=== PATIENT | male | born 1940 | race Caucasian/White ===

== ENCOUNTER 2017-03-14 09:35 | Day surgery (SDC) | payer MEDICARE ==
[~2017-03-14 09:35] MED LIST: AZIT250 PO; LEVSOD200 PO; Metoprolol Tart25 MG PO; OMEP40CA12 PO
== END 2017-03-14 23:05 | disposition home or self-care (01) ==
LOC: WOUND 09:35
PROC: 2W1RX6Z Compression of Left Lower Leg using Pressure Dressing (ICD-10-PCS; principal; 2017-03-14)
DX: Z48.00 Encounter for change or removal of nonsurgical wound dressing (principal); I87.2 Venous insufficiency (chronic) (peripheral); I10 Essential (primary) hypertension
CPT/HCPCS: G0463

== ENCOUNTER 2017-03-17 00:44 | Day surgery (SDC) | payer MEDICARE | END 2017-03-17 23:31 | disposition home or self-care (01) | LOC: WOUND 00:44 | PROC: 0HBLXZZ Excision of Left Lower Leg Skin, External Approach (ICD-10-PCS; principal; 2017-03-17) | DX: Z48.00 Encounter for change or removal of nonsurgical wound dressing (principal); I87.2 Venous insufficiency (chronic) (peripheral); I10 Essential (primary) hypertension; K21.9 Gastro-esophageal reflux disease without esophagitis; L97.221 Non-pressure chronic ulcer of left calf limited to breakdown of skin | CPT/HCPCS: G0463 ==

== ENCOUNTER 2017-03-24 10:30 | Day surgery (SDC) | payer MEDICARE | END 2017-03-24 10:46 | disposition home or self-care (01) | LOC: WOUND 10:30 | PROC: 2W1RX6Z Compression of Left Lower Leg using Pressure Dressing (ICD-10-PCS; principal; 2017-03-24) | DX: Z48.00 Encounter for change or removal of nonsurgical wound dressing (principal); I87.2 Venous insufficiency (chronic) (peripheral); I10 Essential (primary) hypertension; L97.229 Non-pressure chronic ulcer of left calf with unspecified severity ==

== ENCOUNTER 2017-03-31 00:36 | Day surgery (SDC) | payer MEDICARE | END 2017-03-31 22:00 | disposition home or self-care (01) | LOC: WOUND 00:36 | DX: Z48.00 Encounter for change or removal of nonsurgical wound dressing (principal); I87.2 Venous insufficiency (chronic) (peripheral); L97.229 Non-pressure chronic ulcer of left calf with unspecified severity; I10 Essential (primary) hypertension | CPT/HCPCS: G0463 ==

== ENCOUNTER 2018-06-28 16:33 | Inpatient (IN) | payer MEDICARE ==
[~2018-06-28] VITALS: Ht 172.7 cm; Wt 91.1 kg
[~2018-06-28 16:33] MED LIST changes: -LEVSOD200 PO; -Metoprolol Tart25 MG PO; +TIROSINT200 MCG PO
[2018-06-28 17:23] LABS: BASOPHILS ABSOLUTE AUTO 0.04 K/mm3 (0.00-0.23); BASOPHILS PERCENT AUTO 1 % (0-2); EOSINOPHILS ABSOLUTE AUTO 0.14 K/mm3 (0.00-0.68); EOSINOPHILS PERCENT AUTO 2 % (0-6); Hematocrit 45.3 % (37.0-53.0); Hemoglobin 15.1 g/dL (13.5-17.5); IMMATURE GRAN ABSOLUTE AUTO 0.02 K/mm3 (0.00-0.10); IMMATURE GRAN PERCENT AUTO 0 % (0-1); LYMPHOCYTES ABSOLUTE AUTO 1.59 K/mm3 (0.84-5.20); LYMPHOCYTES PERCENT AUTO 22 % (21-46); MONOCYTES ABSOLUTE AUTO 0.52 K/mm3 (0.16-1.47); MONOCYTES PERCENT AUTO 7 % (4-13); Mean Corpuscular HGB 29.1 pg (26.0-34.0); Mean Corpuscular HGB Conc 33.3 g/dL (31.5-36.5); Mean Corpuscular Volume 87 fL (80-100); NEUTROPHILS PERCENT AUTO 69 % (41-73); RDW Coefficient Variation 12.5 % (11.7-14.2); RDW Standard Deviation 39.8 fL (35.1-46.3); Red Blood Cell Count 5.19 M/mm3 (4.30-5.90); White Blood Cell Count 7.41 K/mm3 (4.00-11.30)
[2018-06-28] MEDS ORDERED: FURO20 PO (17:31)
[2018-06-28] MEDS ORDERED: METO50ER PO (17:31)
[2018-06-28] MEDS ORDERED: POTCHL10ER PO (17:32)
[2018-06-28] MEDS ORDERED: ESOM20 PO (17:40)
[2018-06-28] MEDS ORDERED: LIOT5 PO (17:42)
[2018-06-28 17:46] LABS: Alanine Aminotransfer (ALT/SGP 48 U/L (12-78); Albumin, Blood 3.3 g/dL (3.4-5.0); Albumin/Globulin Ratio 0.8 (0.8-1.8); Alk Phos 98 U/L (50-136); Anion Gap 8 mmol/L (6-16); Aspartate Aminotrans (AST/SGOT 26 U/L (12-37); Bilirubin, Total 0.4 mg/dL (0.1-1.0); Blood Urea Nitrogen 11 mg/dL (8-24); Bun/Creatinine Ratio 16.2 (12.0-20.0); CO2, Blood 26 mmol/L (21-32); CPK Creatine Kinase 124 U/L (39-308); Calcium, Blood 8.5 mg/dL (8.5-10.1); Chloride, Blood 105 mmol/L (98-108); Creatine Kinase MB Index 3.2 (0.0-4.0); Creatinine, Blood 0.68 mg/dL (0.60-1.20); Globulin, Blood 4.1 g/dL (2.2-4.0); Glomerular Filtration Rate >60 (60-); Glucose, Blood 152 mg/dL (70-99); Potassium, Blood 3.6 mmol/L (3.5-5.5); Sodium, Blood 139 mmol/L (136-145); Total Protein, Blood 7.4 g/dL (6.4-8.2)
[2018-06-28 19:25] LABS: International Normalized Ratio 0.97; Prothrombin Time Results 10.3 Sec (9.7-11.5)
--- NOTE | 2018-06-28 22:06 | NUR ---
ASSUMED PT CARE AT 2116 PT IS ALERT AND ORIENTED. PLEASANT AND COOPERATIVE WITH CARE. ABLE TO MAKE NEEDS KNOWN. UPON ARRIVAL TO UNIT PT DENIED ANY CHEST PAIN, WELL GENERAL DISCOMFORT. MONITOR SHOWED NSR WITH ST DEPRESSION; HR 80'S AND SBP 180. ADMINISTERED PT'S SCHEDULED LOPRESSOR AND PEPCID. LUNG SOUNDS ARE CLEAR T/O WITH NORMAL RESPIRATORY EFFORT. ABDOMEN IS MODERATELY DISTENDED, NORMAL FOR PT, WITH ACTIVE BTX4. PT IS CONTINENT OF BOTH BOWEL AND BLADDER; URINAL AT BEDSIDE. STANDBY ASSIST FOR TRANSFERS; PT ENCOURAGED TO CALL FOR ASSIST PRIOR TO TRANSFERRING FOR SAFETY AND PREVENTION OF FALLS; PT ACKNOWLEDGED. SKIN IS WARM AND DRY TO THE TOUCH; DENIES ANY NUMBNESS/TINGLING TO HANDS/FEET, BUT DOES STATE HE GENERALLY HAS NUMBNESS TO HIS ANKLES IN WHICH HE HAS TO DANGLE HIS FEET FOR A WHILE AND THEN IT GOES AWAY. POSITIONED THE BED WITH HIS FEET DOWN TO HELP RELIEVE DISCOMFORT; PT STATED IT HELPED. NO EDEMA NOTED. PT DENIES ANY HX OF HEART FAILURE. CALL LIGHT WITHIN REACH. INFORMED PT ON ROUNDING TIMES; PT STATED HE WOULD CALL IF HE NEEDED ANYTHING. STATED HE IS ABLE TO INDEPENDENTLY REPOSITION IN BED AND PREFERS NOT TO BE DISTURBED FOR ASSIST WITH TURNING.
[2018-06-29 03:53] LABS: BASOPHILS ABSOLUTE AUTO 0.04 K/mm3 (0.00-0.23); BASOPHILS PERCENT AUTO 1 % (0-2); EOSINOPHILS ABSOLUTE AUTO 0.19 K/mm3 (0.00-0.68); EOSINOPHILS PERCENT AUTO 2 % (0-6); Hematocrit 45.9 % (37.0-53.0); IMMATURE GRAN ABSOLUTE AUTO 0.02 K/mm3 (0.00-0.10); IMMATURE GRAN PERCENT AUTO 0 % (0-1); LYMPHOCYTES PERCENT AUTO 24 % (21-46); MONOCYTES ABSOLUTE AUTO 0.78 K/mm3 (0.16-1.47); MONOCYTES PERCENT AUTO 9 % (4-13); Mean Corpuscular HGB 28.7 pg (26.0-34.0); Mean Corpuscular HGB Conc 32.7 g/dL (31.5-36.5); Mean Corpuscular Volume 88 fL (80-100); NEUTROPHILS ABSOLUTE AUTO 5.36 K/mm3 (1.96-9.15); NEUTROPHILS PERCENT AUTO 64 % (41-73); Platelet Count 249 K/mm3 (150-400); RDW Coefficient Variation 12.7 % (11.7-14.2); RDW Standard Deviation 40.6 fL (35.1-46.3); Red Blood Cell Count 5.23 M/mm3 (4.30-5.90); White Blood Cell Count 8.39 K/mm3 (4.00-11.30)
[2018-06-29 04:19] LABS: Anion Gap 7 mmol/L (6-16); Blood Urea Nitrogen 12 mg/dL (8-24); Bun/Creatinine Ratio 16.7 (12.0-20.0); CO2, Blood 28 mmol/L (21-32); Calcium, Blood 8.5 mg/dL (8.5-10.1); Chloride, Blood 108 mmol/L (98-108); Creatinine, Blood 0.72 mg/dL (0.60-1.20); Glomerular Filtration Rate >60 (60-); Glucose, Blood 107 mg/dL (70-99); Potassium, Blood 3.7 mmol/L (3.5-5.5); Sodium, Blood 143 mmol/L (136-145)
[2018-06-29 04:31] LABS: Thyroid Stimulating Hormone 0.035 uIU/mL (0.360-4.800)
--- NOTE | 2018-06-29 06:23 | NUR ---
END OF SHIFT SUMMARY PT REMAINS ALERT AND ORIENTED; ABLE TO MAKE NEEDS KNOWN. DENIES FURTHER CHEST PAIN. TROPONIN LEVELS CALLED D/T CRITICALLY HIGH LEVELS WITH ORDERS FOR CARDIOLOGY CONSULT. CALL LIGHT IS WITHIN REACH; PT ABLE TO MAKE HIS NEEDS KNOWN. NO SIGNIFICANT CHANGES.
--- NOTE | 2018-06-29 10:02 | NUR ---
The pt stated this morning that he did not feel like eating breakfast due to his esophagus feeling "fragile". Denied any pain or dyspnea, but stated that he felt like that if he ate, he would feel poorly. Dr. Brenner was here to see the pt. Pt was taking water p.o. without difficulty. Instructed to notify RN if he had any difficulty breathing of has any chest discomfort. He verbalized understanding, and stated he would call for any symptoms.
--- NOTE | 2018-06-29 11:16 | NUR ---
Dr Yen is here to see the pt.
--- NOTE | 2018-06-29 15:30 | NUR ---
Telephone report was given to KRISTAL Juan working on PCU today. The pt will NOT being having an angiogram today due to staffing in the heart center, per Madina Phillip RN. INstead, the pt is to be NPO after MN tonight for angiogram in the morning.
--- NOTE | 2018-06-29 15:43 | NUR ---
TRANSFER NOTE- PT TRANSFERED FROM ICU, RECIEVED REPORT FROM EVENTS MANAGER MELITA. PLAN IS FOR PT TO GO TO THE [facility] TOMORROW MORNING. PT ALERT AND ORIENTED AND INDEPENDENT, ON TELE RUNNING NSR AT 70 PER BIOLOGICAL TECHNICAL OFFICER ISHMAEL. NO S&S OF DISTRESS NOTED AT THE TIME OF TRANSFER. PT SITTING UP IN THE CHAIR WITH THE CALL LIGHT IN REACH.
--- NOTE | 2018-06-29 18:37 | NUR ---
SHIFT SUMMARY- PT TRANSFERED FROM ICU. PLAN FOR [facility]ESSIONAL IN THE MORNING. PT CURRENTLY SITTING IN THE CHAIR CALL LIGHT IN REACH, NO S&S OF DISTRESS, ON ROOM AIR NSR ON TELE. WILL PASS ON IN REPORT TO GAMBLING DEALER.
--- NOTE | 2018-06-29 19:40 | NUR ---
PM NOTE. ASSUMED CARE OF PT APROX 1900, PT IS A&O AND IND IN THE ROOM. PT WAS ADMITTED DUE TO UNSTABLE ANGINA, PT STATES HE HAS HAD THIS BEFORE BUT THAT HE COULD "NOT CONTROL IT LIKE I NORMALLY CAN AT HOME." PT IS SCHEUDLED FOR AN ANGIO IN THE AM. PT IS TO BE NPO AFTER MIDNIGHT PER PROTOCOL/ORDERS. PT IS CURRENTLY SITTING UP IN A CHAIR IN THE ROOM IN NO DISTRESS, PT DENIES ANY CHEST PAIN/PRESSURE AT THIS TIME. TELE INTACT, NSR IN THE 70'S PER YARN SIZER, PT'S BP 155/69. PT HAS 1+ EDEMA TO HIS RIGHT LEG AND 2+ TO HIS LEFT, PT STATES "THIS IS MORE THAN NORMAL." L/S CLEAR T/O AND DIM IN THE BASES, PT IS ON RA AT 97%, RR 16 EVEN AND UNLABORED. BT PRESENT AND NORMOACTIVE. ABD IS SOFT AND NONTENDER TO PALP. CALL LIGHT IN REACH, WILL CONTINUE TO MONITOR.
[2018-06-30 05:02] LABS: Hematocrit 47.2 % (37.0-53.0); Hemoglobin 15.2 g/dL (13.5-17.5); Mean Corpuscular HGB 28.5 pg (26.0-34.0); Mean Corpuscular HGB Conc 32.2 g/dL (31.5-36.5); Mean Corpuscular Volume 89 fL (80-100); Platelet Count 266 K/mm3 (150-400); RDW Coefficient Variation 12.6 % (11.7-14.2); RDW Standard Deviation 41.2 fL (35.1-46.3); Red Blood Cell Count 5.33 M/mm3 (4.30-5.90); White Blood Cell Count 7.37 K/mm3 (4.00-11.30)
[2018-06-30 05:25] LABS: Anion Gap 7 mmol/L (6-16); Blood Urea Nitrogen 19 mg/dL (8-24); CO2, Blood 27 mmol/L (21-32); Calcium, Blood 8.8 mg/dL (8.5-10.1); Chloride, Blood 108 mmol/L (98-108); Creatinine, Blood 0.73 mg/dL (0.60-1.20); Glomerular Filtration Rate >60 (60-); Glucose, Blood 102 mg/dL (70-99); Potassium, Blood 3.7 mmol/L (3.5-5.5); Sodium, Blood 142 mmol/L (136-145)
--- NOTE | 2018-06-30 06:05 | NUR ---
SHIFT SUMMARY. NO ACUTE CHANGES NOTED THIS SHIFT. PT DENIES ANY CHEST PAIN/PRESSURE, N/V OR SOB. PT'S VS HAVE BEEN STABLE. PT HAS BEEN IND IN THE ROOM. NO CARDIAC EVENTS NOTED PER BURLAP MAN. PT HAS BEEN NPO SINCE MIDNIGHT FOR ANGIO THIS AM. CALL LIGHT IN REACH, BED IS LOCKED AND LOW WILL CONTINUE TO MONITOR UNTIL REPORT IS GIVEN TO ONCOMING RN.
--- NOTE | 2018-06-30 07:00 | NUR ---
BEDSIDE REPORT COMPLETED WITH NIGHT RN PRATEEK. PT TO GO TO LABOR SERVICE REPRESENTATIVE FIRST THING THIS MORNING, NO S&S OF DISTRESS NOTED AT THIS TIME, DENIES CHEST PAIN AND SOB. WILL CTM.
[2018-06-30 09:25] LABS: PCO2 Arterial 45.6 mmHg (35-45); PO2 Arterial 110 mmHg (80-100); pH Blood Arterial 7.36 (7.35-7.45)
--- NOTE | 2018-06-30 14:18 | NUR ---
PT RETURNED FROM [facility], PLAN IS TOP COBRA TRANSFER TO [facility], PT AWAITING BED. POST OP VITALS BEING COMPLETED ORDERED BY DR GRAF. PT HAS A TR BAND IN PLACE AFTER 2 HOURS POST OP BEGAN LETTING 2ML OF AIR OUT OF THE TR BAND Q 30MINUTES. THE THIRD TIME FOR A 2ML RELEASE WAS AT 1400, NOTED BLEEDING AT THE SITE REPLACED THE 2ML OF AIR AND BLEEDING STOPPED WILL REATTEMPT IN 45 MINUTES TO RELEASE MORE PRESSURE.
--- NOTE | 2018-06-30 17:17 | NUR ---
SHIFT SUMMARY- PT WENT TO [facility]NAGER [facility] THIS MORNING, TR BAND HAS BEEN RELEASED TO ZERO PRESSURE AND SITE WILL BE CLEANED AND HAVE A TEGADERM PLACED ON IT IN 15 MINUTES. PT IS AWAITING A BED AT [facility] FOR [facility]PASS SURGERY. PT ALERT AND ORIENTED NO C/O CHEST PAIN OR SOB ON EXERTION. PT TAKING PO FLIUDS WELL. IVF STOPPED PER ORDER PARAMETERS, VITALS STABLE AT THIS TIME. WILL CTM AND PASS ON TO NIGHT RN IN REPORT.
--- NOTE | 2018-06-30 20:00 | NUR ---
RECEIVED HAND OFF FROM Bladimir REYES RN USING SBAR DURING BEDSIDE REPORT. SITTING UP IN CHAIR AT BEDSIDE WHILE WATCHING TV. AAO X3, KAY, FOLLOWS ALL COMMANDS. ORIENTED TO ROOM, CALL SYSTEM, AND POC, VOICES UNDERTSTANDING. RIGHT RADIAL TR BAND SITE LOOKS APPROPRIATE WITH NO BLEEDING, OR OOZING NOTED. TEGADERM DRESSING IS C/D/I AND WRIST IMMOBILIZER IN PLACE. GOOD DISTAL PULESE AND CAP REFILL OF < 3 SEC NOTED. DENIES PAIN OR DISCOMFORT. SHIFT ASSESSMENT IN PROGRESS. DENIES FURTHER NEEDS AT THIS TIME. SAFETY MEASURES IN PLACE. WILL CONTINUE TO MONITOR.
--- NOTE | 2018-07-01 05:23 | NUR ---
LYING IN HIGH FOWLERS WITH EYES CLOSED. HAS HAD A GOOD NIGHT, RESTED WELL. NO C/O PAIN, DISCOMFORT, OR FURTHER NEEDS. WAITING ON ROOM TO BE AVAILABLE AT [facility] FOR CABG. SAFETY MEASURES IN PLACE. WILL GIVE HAND OFF TO ONCOMING SHIFT USING SBAR DURING BEDSIDE REPORT.
--- NOTE | 2018-07-01 05:27 | NUR ---
SHIFT SUMMARY LYING IN HIGH FOWLERS WITH EYES CLOSED. HAS HAD A GOOD NIGHT, RESTED WELL. NO C/O PAIN, DISCOMFORT, OR FURTHER NEEDS. WAITING ON ROOM TO BE AVAILABLE AT [place] FOR CABG. SAFETY MEASURES IN PLACE. WILL GIVE HAND OFF TO ONCOMING SHIFT USING SBAR DURING BEDSIDE REPORT.
--- NOTE | 2018-07-01 07:00 | NUR ---
ASSUMED CARE OF PT- BEDSIDE REPORT COMPLETED WITH NIGHT RN LINDA. PT HAS HAD AN UNEVENTFUL NIGHT PER REPORT, STILL AWAITING A BED AT THIS TIME FOR COBRA TRANSFER.
--- NOTE | 2018-07-01 08:06 | NUR ---
RECIEVED NOTICE OF BED AVAILABILITY, PT INFORMED, COBRA TRANSFER PAPERS SIGNED WILL CALL FOR REPORT SHORTLY.
--- NOTE | 2018-07-01 08:19 | NUR ---
CALLED [facility] AND GAVE REPORT TO CC KRISTAL NAIR, NO FURTHER QUESTIONS AT THE TIME OF REPORT, WILL CALL BACK WHEN PT LEAVES THE HOSPITAL.
== END 2018-07-01 10:36 | disposition short-term general hospital (02) | DRG 282 ==
LOC: ER 16:33 → ICUW 16:34 → PCU 21:44 → ICUW 06-29 12:06 → PCU 06-29 15:39
PROVIDERS: Emergency Medicine; Internal Medicine Cardiovascular Disease; ADMIT Internal Medicine
PROC: B2111ZZ Fluoroscopy of Multiple Coronary Arteries using Low Osmolar Contrast (ICD-10-PCS; principal; 2018-06-30)
PROC: 4A023N7 Measurement of Cardiac Sampling and Pressure, Left Heart, Percutaneous Approach (ICD-10-PCS; 2018-06-30)
DX: I21.4 Non-ST elevation (NSTEMI) myocardial infarction (principal); K44.9 Diaphragmatic hernia without obstruction or gangrene; I10 Essential (primary) hypertension; E03.9 Hypothyroidism, unspecified; K21.0 Gastro-esophageal reflux disease with esophagitis; I25.110 Atherosclerotic heart disease of native coronary artery with unstable angina pectoris; Z79.82 Long term (current) use of aspirin
CPT/HCPCS: 36415; 71045; 80048; 80053; 82550; 82553; 82803; 84439; 84443; 84484; 85025; 85027; 85610; 85730; 93005; 93010; 93306; 93458; 96372; 99152; 99153; 99285-25; C1769; C1894; G0378; J1644; J1650; J2250; J2270; J3010; J7030; Q9967

== ENCOUNTER 2019-04-15 05:01 | Emergency (ER) | payer MEDICARE ==
[~2019-04-15] VITALS: Ht 167.6 cm; Wt 90.7 kg
[~2019-04-15 05:01] MED LIST changes: +ESOM20 PO; +FURO20 PO; +LIOT5 PO; +METO50ER PO; +POTCHL10ER PO
[2019-04-15] MEDS ORDERED: ATOR20 PO (05:21)
[2019-04-15] MEDS ORDERED: FINA5 PO (05:21)
[2019-04-15] MEDS ORDERED: AMLO10 PO (05:21)
[2019-04-15] MEDS ORDERED: Flomax0.4 MG PO (05:22)
[2019-04-15] MEDS ORDERED: SPIR25 (05:23)
[2019-04-15 05:34] LABS: BASOPHILS ABSOLUTE AUTO 0.03 K/mm3 (0.00-0.23); BASOPHILS PERCENT AUTO 0 % (0-2); EOSINOPHILS ABSOLUTE AUTO 0.16 K/mm3 (0.00-0.68); EOSINOPHILS PERCENT AUTO 2 % (0-6); Hemoglobin 12.4 g/dL (13.5-17.5); IMMATURE GRAN ABSOLUTE AUTO 0.04 K/mm3 (0.00-0.10); IMMATURE GRAN PERCENT AUTO 0 % (0-1); LYMPHOCYTES ABSOLUTE AUTO 1.25 K/mm3 (0.84-5.20); LYMPHOCYTES PERCENT AUTO 13 % (21-46); MONOCYTES ABSOLUTE AUTO 0.69 K/mm3 (0.16-1.47); MONOCYTES PERCENT AUTO 7 % (4-13); Mean Corpuscular HGB 27.3 pg (26.0-34.0); Mean Corpuscular HGB Conc 31.8 g/dL (31.5-36.5); Mean Corpuscular Volume 86 fL (80-100); Mean Platelet Volume 9.5 fL (9.1-12.4); NEUTROPHILS ABSOLUTE AUTO 7.65 K/mm3 (1.96-9.15); NEUTROPHILS PERCENT AUTO 78 % (41-73); Platelet Count 297 K/mm3 (150-400); RDW Coefficient Variation 13.3 % (11.7-14.2); RDW Standard Deviation 42.1 fL (35.1-46.3); Red Blood Cell Count 4.55 M/mm3 (4.30-5.90); White Blood Cell Count 9.82 K/mm3 (4.00-11.30)
[2019-04-15 05:56] LABS: Troponin I <0.015 ng/mL (0.000-0.040)
[2019-04-15 05:57] LABS: Alanine Aminotransfer (ALT/SGP 33 U/L (12-78); Albumin, Blood 2.9 g/dL (3.4-5.0); Albumin/Globulin Ratio 0.6 (0.8-1.8); Alk Phos 118 U/L (50-136); Anion Gap 5 mmol/L (6-16); Aspartate Aminotrans (AST/SGOT 24 U/L (12-37); Bilirubin, Total 0.3 mg/dL (0.1-1.0); Blood Urea Nitrogen 21 mg/dL (8-24); Bun/Creatinine Ratio 23.1 (12.0-20.0); CO2, Blood 27 mmol/L (21-32); Calcium, Blood 8.6 mg/dL (8.5-10.1); Chloride, Blood 107 mmol/L (98-108); Creatinine, Blood 0.91 mg/dL (0.60-1.20); Globulin, Blood 4.5 g/dL (2.2-4.0); Glomerular Filtration Rate >60 (60-); Glucose, Blood 135 mg/dL (70-99); Potassium, Blood 3.8 mmol/L (3.5-5.5); Sodium, Blood 139 mmol/L (136-145); Total Protein, Blood 7.4 g/dL (6.4-8.2)
[2019-04-15] MEDS ORDERED: Flonase 0.05% N16 GM (07:47)
== END 2019-04-15 07:55 | disposition home or self-care (01) ==
LOC: ER 05:01
PROVIDERS: Emergency Medicine
DX: J06.9 Acute upper respiratory infection, unspecified (principal); I49.9 Cardiac arrhythmia, unspecified; E03.9 Hypothyroidism, unspecified; I10 Essential (primary) hypertension; Z79.899 Other long term (current) drug therapy
CPT/HCPCS: 36415; 71046; 80053; 83880; 84484; 85025; 93005; 93010; 93225; 96360-59; 99284-25; A9270; J7030

== ENCOUNTER 2019-05-14 23:43 | Observation (INO) | payer MEDICARE ==
[~2019-05-14] VITALS: Ht 167.6 cm; Wt 100.6 kg
[~2019-05-14 23:43] MED LIST changes: +AMLO10 PO; +ATOR20 PO; +FINA5 PO; +Flomax0.4 MG PO; +Flonase 0.05% N16 GM; +SPIR25 PO
[2019-05-15 00:04] LABS: BASOPHILS ABSOLUTE AUTO 0.04 K/mm3 (0.00-0.23); BASOPHILS PERCENT AUTO 0 % (0-2); EOSINOPHILS ABSOLUTE AUTO 0.32 K/mm3 (0.00-0.68); EOSINOPHILS PERCENT AUTO 3 % (0-6); Hematocrit 41.6 % (37.0-53.0); Hemoglobin 12.9 g/dL (13.5-17.5); IMMATURE GRAN ABSOLUTE AUTO 0.03 K/mm3 (0.00-0.10); IMMATURE GRAN PERCENT AUTO 0 % (0-1); LYMPHOCYTES ABSOLUTE AUTO 2.74 K/mm3 (0.84-5.20); LYMPHOCYTES PERCENT AUTO 28 % (21-46); MONOCYTES ABSOLUTE AUTO 0.89 K/mm3 (0.16-1.47); MONOCYTES PERCENT AUTO 9 % (4-13); Mean Corpuscular HGB 26.8 pg (26.0-34.0); Mean Corpuscular Volume 86 fL (80-100); Mean Platelet Volume 9.9 fL (9.1-12.4); NEUTROPHILS ABSOLUTE AUTO 5.85 K/mm3 (1.96-9.15); NEUTROPHILS PERCENT AUTO 59 % (41-73); Platelet Count 262 K/mm3 (150-400); RDW Coefficient Variation 13.9 % (11.7-14.2); RDW Standard Deviation 43.9 fL (35.1-46.3); Red Blood Cell Count 4.82 M/mm3 (4.30-5.90); White Blood Cell Count 9.87 K/mm3 (4.00-11.30)
[2019-05-15 00:24] LABS: Alanine Aminotransfer (ALT/SGP 34 U/L (12-78); Albumin, Blood 3.3 g/dL (3.4-5.0); Albumin/Globulin Ratio 0.7 (0.8-1.8); Alk Phos 124 U/L (50-136); Anion Gap 6 mmol/L (6-16); Aspartate Aminotrans (AST/SGOT 19 U/L (12-37); Bilirubin, Total 0.2 mg/dL (0.1-1.0); Blood Urea Nitrogen 18 mg/dL (8-24); Bun/Creatinine Ratio 16.2 (12.0-20.0); CO2, Blood 29 mmol/L (21-32); Calcium, Blood 8.8 mg/dL (8.5-10.1); Chloride, Blood 107 mmol/L (98-108); Creatinine, Blood 1.11 mg/dL (0.60-1.20); Globulin, Blood 4.5 g/dL (2.2-4.0); Glomerular Filtration Rate >60 (60-); Glucose, Blood 141 mg/dL (70-99); Potassium, Blood 3.6 mmol/L (3.5-5.5); Sodium, Blood 142 mmol/L (136-145); Total Protein, Blood 7.8 g/dL (6.4-8.2); Troponin I <0.015 ng/mL (0.000-0.040)
--- NOTE | 2019-05-15 06:33 | NUR ---
SHIFT SUMMARY- PT. NEW ADMIT FROM ED FOR CP, SOB. A&O, INDEPENDENT. PT. ON RA, HAS DENIED ANY PAIN OR DISCOMFORT THIS SHIFT. IV FLUIDS INFUSING. RESTING COMFORTABLY IN BED, NO APPARENT DISTRESS NOTED. CALL LIGHT WITHIN REACH AND SIDE RAILS UP X2. WILL CONT TO MONITOR.
[2019-05-15 08:35] LABS: Hemoglobin 12.6 g/dL (13.5-17.5); Mean Corpuscular HGB 26.9 pg (26.0-34.0); Mean Corpuscular HGB Conc 31.5 g/dL (31.5-36.5); Mean Corpuscular Volume 86 fL (80-100); Mean Platelet Volume 10.6 fL (9.1-12.4); Platelet Count 204 K/mm3 (150-400); RDW Coefficient Variation 14.1 % (11.7-14.2); RDW Standard Deviation 43.6 fL (35.1-46.3); Red Blood Cell Count 4.68 M/mm3 (4.30-5.90); White Blood Cell Count 9.45 K/mm3 (4.00-11.30)
[2019-05-15 08:36] LABS: Alanine Aminotransfer (ALT/SGP 30 U/L (12-78); Albumin, Blood 3.1 g/dL (3.4-5.0); Albumin/Globulin Ratio 0.7 (0.8-1.8); Alk Phos 105 U/L (50-136); Anion Gap 6 mmol/L (6-16); Aspartate Aminotrans (AST/SGOT 28 U/L (12-37); Bilirubin, Total 0.5 mg/dL (0.1-1.0); Blood Urea Nitrogen 18 mg/dL (8-24); CO2, Blood 29 mmol/L (21-32); Calcium, Blood 8.8 mg/dL (8.5-10.1); Chloride, Blood 107 mmol/L (98-108); Globulin, Blood 4.2 g/dL (2.2-4.0); Glomerular Filtration Rate >60 (60-); Glucose, Blood 115 mg/dL (70-99); Potassium, Blood 4.2 mmol/L (3.5-5.5); Sodium, Blood 142 mmol/L (136-145); Total Protein, Blood 7.3 g/dL (6.4-8.2)
[2019-05-15 08:39] LABS: Troponin I 0.136 ng/mL (0.000-0.040)
--- NOTE | 2019-05-15 12:59 | NUR ---
Echocardiogram using 0.50ml of Definity contrast performed.
[2019-05-15 14:27] LABS: CPK Creatine Kinase 122 U/L (39-308)
--- NOTE | 2019-05-15 17:53 | NUR ---
SHIFT SUMMARY PT INDEPENDENT IN ROOM. REPORTS SOB WITH ANY EXERTION AND RESP INCREASES WITH ACTIVITY. TAKES A SHORT TIME TO RECOVER. CONSULT CALLED IN TO GI. DR. MILLER HERE NOW.
[2019-05-15 19:13] LABS: Percent Saturation 11.6 % (20.0-50.0)
[2019-05-16] MEDS ORDERED: ASPI81CH PO (12:03)
--- NOTE | 2019-05-16 18:10 | NUR ---
SHIFT SUMMARY- PT IS A/O, PLESANT AND COOPERATIVE. HE WENT DOWN FOR A BARIUM SWALLOW EVALUATION, AND WAS STRICTLY NPO. HE ATE WELL AFTER HIS RETURN. PT WAS GOING TO DISCHARGE TODAY, THERE WAS SOME CONCERN FROM DR. PRESCOTT ABOUT PT BEING ABLE TO FOLLOW UP WITH SPEECH THERAPY AFTER DISCHARGE. IT WAS DECIDED THAT IT WOULD BE BETTER FOR PT TO STAY THE NIGHT AND SEE ST PRIOR TO GOING HOME. PT WAS AGREEABLE.
--- NOTE | 2019-05-16 22:17 | NUR ---
IV PT HAD DISCHARGE ORDERS THAT WERE LATER RETRACTED BY THE HOSPITALIST. IV WAS REMOVED BY DAYSHIFT RN WHEN INITAL DC ORDER WAS RECEIVED. PT HAS NO IV AT THIS TIME. POSSIBLE DC TOMORROW. NO IV MEDICATIONS.
--- NOTE | 2019-05-17 05:33 | NUR ---
SHIFT SUMMARY PT HAS RESTED WELL THIS SHIFT. PT DISCHARGE WAS POSTPONED YESTERDAY BY BOTH CONSULTING DR AND HOSPITALIST AFTER POSTIVE BARIUM SWALLOW. PLAN IS FOR DC TODAY. THERE HAVE BEEN NO ACUTE CHANGES IN PT ASSESSMENT OVERNIGHT. PT HAS RESTED ON AND OFF T/O THE SHIFT AND HAS DENIED NEEDS. BED IN LOWEST POSITION, CALL LIGHT WITHIN REACH. WILL CONTINUE TO MONITOR AND REPORT TO ONCOMING RN.
--- NOTE | 2019-05-17 14:15 | NUR ---
ASSUMED CARE ASSUMED CARE OF PT. PT TO HAVE BARRIUM SWALLOW EXAM AND THEN IS OKAY TO DC. WILL CONTINUE TO MONITOR.
--- NOTE | 2019-05-17 14:54 | NUR ---
PT DISCHARGED. PT HAD PARKUM SWALLOW COMPLETED. OUTPT ST NEEDED. PT GIVEN NUMBER TO CALL WHEN HOME. PT REEDUCATED ON DC INSTRUCTIONS. PT WHEELED OUT BY NURSE. FAMILY TO DRIVE PT HOME.
== END 2019-05-17 15:03 | disposition home or self-care (01) ==
LOC: ER 23:43 → MEDS 23:45 → ER 05-15 02:23 → MEDS 05-15 02:35 → ENPENDDIS 05-17 14:24 → MEDS 05-17 15:03
PROVIDERS: Emergency Medicine; Internal Medicine Gastroenterology; ADMIT Internal Medicine
DX: R07.89 Other chest pain (principal); R10.13 Epigastric pain; I25.10 Atherosclerotic heart disease of native coronary artery without angina pectoris; I10 Essential (primary) hypertension; E03.9 Hypothyroidism, unspecified; K21.9 Gastro-esophageal reflux disease without esophagitis; D64.9 Anemia, unspecified; R06.09 Other forms of dyspnea; I25.2 Old myocardial infarction; Z79.51 Long term (current) use of inhaled steroids; Z79.82 Long term (current) use of aspirin; Z79.899 Other long term (current) drug therapy; Z95.1 Presence of aortocoronary bypass graft
CPT/HCPCS: 36415; 71046; 74230; 74246; 80053; 82550; 82728; 83540; 83550; 83690; 84484; 85025; 85027; 92611; 93005; 93010; 96374; 96375; 99285-25; A9270-GY; C8929; C9113; J1650; J7030; Q9957

== ENCOUNTER 2022-10-06 11:48 | Day surgery (SDC) | payer MEDICARE ==
[~2022-10-06] VITALS: Ht 167.6 cm; Wt 104.7 kg
[~2022-10-06 11:48] MED LIST changes: +ASPI81CH PO; +METO25ER PO
[2022-10-06] MEDS ORDERED: SOAANZ20 M3 PO (12:24)
[2022-10-06] MEDS ORDERED: METF500 (12:25)
--- NOTE | 2022-10-06 12:30 | NUR ---
10/06/22 1230 Natalia Esparza AT 1223 PLEDGET AT 1225
[2022-10-06 13:46] VITALS: BP 98/57
== END 2022-10-06 14:07 | disposition home or self-care (01) ==
LOC: ORSCSDS 11:48
PROVIDERS: Ophthalmology
PROC: 08RK3JZ Replacement of Left Lens with Synthetic Substitute, Percutaneous Approach (ICD-10-PCS; principal; 2022-10-06 13:00)
DX: E11.36 Type 2 diabetes mellitus with diabetic cataract (principal); H25.12 Age-related nuclear cataract, left eye; I10 Essential (primary) hypertension; E03.9 Hypothyroidism, unspecified; J45.909 Unspecified asthma, uncomplicated; Z79.84 Long term (current) use of oral hypoglycemic drugs; Z79.82 Long term (current) use of aspirin; Z79.899 Other long term (current) drug therapy
CPT/HCPCS: 82947; J2250; J3010; J3301; J7040; V2632

== ENCOUNTER 2022-10-13 11:55 | Day surgery (SDC) | payer MEDICARE ==
[~2022-10-13] VITALS: Ht 167.6 cm; Wt 106.1 kg
[~2022-10-13 11:55] MED LIST changes: +METF500; +SOAANZ20 M3 PO
[2022-10-13] MEDS ORDERED: Potassium Chlo20 ME1 PO (12:12)
[2022-10-13] MEDS ORDERED: SOAANZ20 M3 PO (12:12)
[2022-10-13] MEDS ORDERED: JARDIANCE10 MG PO (12:13)
--- NOTE | 2022-10-13 12:30 | NUR ---
10/13/22 1230 Natalia Esparza AT 1214 PLEDGET AT 1216
--- NOTE | 2022-10-13 13:50 | NUR ---
10/13/22 1350 James Vuong IV REMOVED INTACT. SITE WNL.
[2022-10-13 14:04] VITALS: BP 108/55
== END 2022-10-13 13:37 | disposition home or self-care (01) ==
LOC: ORSCSDS 11:55
PROVIDERS: Ophthalmology
PROC: 08RJ3JZ Replacement of Right Lens with Synthetic Substitute, Percutaneous Approach (ICD-10-PCS; principal; 2022-10-13 13:00)
DX: E11.36 Type 2 diabetes mellitus with diabetic cataract (principal); H25.11 Age-related nuclear cataract, right eye; Z96.1 Presence of intraocular lens; E03.9 Hypothyroidism, unspecified; I10 Essential (primary) hypertension; E78.5 Hyperlipidemia, unspecified; I25.10 Atherosclerotic heart disease of native coronary artery without angina pectoris; Z79.899 Other long term (current) drug therapy; E66.9 Obesity, unspecified; Z68.37 Body mass index [BMI] 37.0-37.9, adult; Z79.82 Long term (current) use of aspirin
CPT/HCPCS: 82947; J2250; J3010; J3301; J7040; V2632

== ENCOUNTER 2024-09-21 16:30 | Emergency (ER) | payer MEDICARE ==
[~2024-09-21] VITALS: Ht 167.6 cm; Wt 108.9 kg
[~2024-09-21 16:30] MED LIST changes: +JARDIANCE10 MG PO; +Potassium Chlo20 ME1 PO
[2024-09-21 17:41] LABS: BASOPHILS ABSOLUTE AUTO 0.05 K/mm3 (0.00-0.23); BASOPHILS PERCENT AUTO 1 % (0-2); EOSINOPHILS ABSOLUTE AUTO 0.17 K/mm3 (0.00-0.68); EOSINOPHILS PERCENT AUTO 2 % (0-6); Hematocrit 41.1 % (37.0-53.0); Hemoglobin 13.4 g/dL (13.5-17.5); IMMATURE GRAN ABSOLUTE AUTO 0.04 K/mm3 (0.00-0.10); IMMATURE GRAN PERCENT AUTO 0 % (0-1); LYMPHOCYTES ABSOLUTE AUTO 1.10 K/mm3 (0.84-5.20); LYMPHOCYTES PERCENT AUTO 10 % (21-46); MONOCYTES ABSOLUTE AUTO 0.91 K/mm3 (0.16-1.47); MONOCYTES PERCENT AUTO 8 % (4-13); Mean Corpuscular HGB Conc 32.6 g/dL (31.5-36.5); Mean Corpuscular Volume 85 fL (80-100); NEUTROPHILS ABSOLUTE AUTO 8.72 K/mm3 (1.96-9.15); NEUTROPHILS PERCENT AUTO 79 % (41-73); NRBC ABSOLUTE 0.00 K/mm3 (0.00-0.02); NRBC Auto 0.0 /100 WBC (0.0-0.2); Platelet Count 407 K/mm3 (150-400); RDW Coefficient Variation 15.4 % (11.7-14.2); RDW Standard Deviation 47.5 fL (35.1-46.3)
[2024-09-21 18:05] LABS: Alanine Aminotransfer (ALT/SGP 31.0 U/L (12-78); Albumin, Blood 3.0 g/dL (3.4-5.0); Albumin/Globulin Ratio 0.6 (0.8-1.8); Anion Gap 5.0 mmol/L (3-11); Aspartate Aminotrans (AST/SGOT 20.0 U/L (12-37); Bilirubin, Total 0.7 mg/dL (0.1-1.0); Blood Urea Nitrogen 22.0 mg/dL (8-24); CO2, Blood 30.0 mmol/L (21-32); Calcium, Blood 8.9 mg/dL (8.5-10.1); Chloride, Blood 104.0 mmol/L (98-108); Creatinine, Blood 0.91 mg/dL (0.60-1.20); Globulin, Blood 5.0 g/dL (2.2-4.0); Glucose, Blood 135.0 mg/dL (70-99); Potassium, Blood 3.7 mmol/L (3.5-5.5); Sodium, Blood 135.0 mmol/L (136-145); Total Protein, Blood 8.0 g/dL (6.4-8.2)
[2024-09-21 21:19] VITALS: BP 133/72
== END 2024-09-21 21:28 | disposition home or self-care (01) ==
LOC: ER 16:30
PROVIDERS: Student in an Organized Health Care Education/Training Program
DX: B87.9 Myiasis, unspecified (principal); I10 Essential (primary) hypertension; E03.9 Hypothyroidism, unspecified; K21.9 Gastro-esophageal reflux disease without esophagitis; Z79.82 Long term (current) use of aspirin; Z79.84 Long term (current) use of oral hypoglycemic drugs; Z79.899 Other long term (current) drug therapy
CPT/HCPCS: 80053; 85025

== ENCOUNTER 2024-10-02 07:48 | Day surgery (SDC) | payer MEDICARE ==
[2024-10-02] MEDS ORDERED: Miconazole Nitrate 2% 85 GM PWD ONE (14:42)
== END 2024-10-02 23:00 | disposition home or self-care (01) ==
LOC: WOUND 07:48
DX: L97.812 Non-pressure chronic ulcer of other part of right lower leg with fat layer exposed (principal); I89.0 Lymphedema, not elsewhere classified; I87.2 Venous insufficiency (chronic) (peripheral); I73.9 Peripheral vascular disease, unspecified
CPT/HCPCS: A9270; G0463

== ENCOUNTER 2024-10-08 01:02 | Day surgery (SDC) | payer MEDICARE ==
[2024-10-08] MEDS ORDERED: Miconazole Nitrate 2% 85 GM PWD ONE (09:33)
== END 2024-10-08 23:00 | disposition home or self-care (01) ==
LOC: WOUND 01:02
DX: I89.0 Lymphedema, not elsewhere classified (principal); I87.2 Venous insufficiency (chronic) (peripheral); I73.9 Peripheral vascular disease, unspecified; K21.9 Gastro-esophageal reflux disease without esophagitis
CPT/HCPCS: A9270; G0463